=== PATIENT | female | born 1980 | race Caucasian/White ===

== ENCOUNTER 2019-08-22 22:23 | Emergency (ER) | payer OTHER ==
--- NOTE | 2019-08-22 23:41 | ER ---
Nurse's Notes [facility] Name: Ruba Dick Age: 38 yrs Sex: Female : 1980 Arrival Date: 08/22/2019 Time: 22:24 Bed Waiting Private MD: Diagnosis: Presentation: 08/21 22:32 Chief complaint: Patient states: Pelvic pain that started yesterday with worsening pain bb today. No other complaints. Coronavirus screen: Proceed with normal triage. Ebola Screen: Patient negative for fever greater than or equal to 101.5 degrees Fahrenheit, and additional compatible Ebola Virus Disease symptoms Patient denies exposure to infectious person. Patient denies travel to an Ebola-affected area in the 21 days before illness onset. Initial Sepsis Screen: Does the patient meet any 2 criteria? No. Patient's initial sepsis screen is negative. Does the patient have a suspected source of infection? No. Patient's initial sepsis screen is negative. Risk Assessment: Do you want to hurt yourself or someone else? Patient reports no desire to harm self or others. Onset of symptoms was August 21, 2019. 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 - Social history:: Smoking status: Patient denies any tobacco usage or history of. Patient/guardian denies using alcohol, street drugs. Vital Signs: 22:32 BP 136 / 94; Pulse 81; Resp 19; Temp 97.9; Pulse Ox 98% on R/A; Weight 104.33 kg; bb Height 5 ft. 6 in. (167.64 cm); Pain 8/10; 22:32 Body Mass Index 37.12 (104.33 kg, 167.64 cm) bb ED Course: 22:24 Patient arrived in ED. ds1 22:34 Triage completed. bb 22:36 Arm band placed on right wrist. bb 23:33 Jorge Bee PA is PHCP. cp 23:33 Malcolm Dia MD is Attending Physician. cp 23:40 Patient's name was called from ER lobby. No response. Unable to locate patient. Will bb disposition as left without being seen by a provider. Administered Medications: No medications were administered Outcome: 23:41 Patient left the ED. bb Signatures: Jacque Best ds1 Aimee Polk RN RN bb Jorge Bee PA PA cp
[2019-08-22 23:55] VITALS: BP 136/94; TEMP 97.9; O2SAT 98
== END 2019-08-22 23:41 | disposition left against medical advice (07) ==
LOC: ER 22:23
DX: Z53.21 Procedure and treatment not carried out due to patient leaving prior to being seen by health care provider (principal)
CPT/HCPCS: 99281

== ENCOUNTER 2023-10-14 14:50 | Emergency (ER) | payer BC ==
--- OUTSIDE RECORDS SUMMARY | 2023-10-14 14:53 | XMS REPORT | Continuity of Care Document ---
Author Name Unknown Organization [facility] Address [address] [place] [address] Care Team Providers Care Rn Access Name Role Phone Catrina Gentile MD Unavailable Don Mead MD Primary Care Provider [email or web address] Mikal oBsch MD Unavailable [phone] Monster Lee MD Unavailable [phone] Mercedes Marie MD Unavailable [phone] Allergies No known active allergiesafter 10/14/2022 Medications Medication Sig Dispensed Refills Start Date End Date Status acetaminophen (TYLENOL) 500 mg tabletIndications:Mal ignant neoplasm of endocervix Take 2 tablets (1,000 mg) by mouth every 6 (six) hours. For pain. 60 tablet 08/04/2018 Active multivitamin capsule Take 1 capsule by mouth daily. Active cyanocobalamin (VITAMIN B-12) 100 mcg tablet Take by mouth daily. Active calcium carbonate-vitamin D3 (calcium-vitamin D) 500 mg - 200 units (1,250 mg calcium carbonate) tablet Take by mouth 2 (two) times a day with meals. Active after 10/14/2022 Active Problems Problem Noted Date Diagnosed Date Other fatigue 12/01/2018 Exercise counseling 12/01/2018 Malignant neoplasm of endocervix 05/30/2018 Cancer Staging:Clinical stage from 05/24/2017:Stage IA2- Unsigned Pathologic: Unsigned Numbness of hand after 10/14/2022 Family History Medical History Relation Name Comments Alcohol abuse Father Hypertension Father Relation Name Status Comments Brother Alive Father Alive Mother Alive after 10/14/2022 Social History Smoking Status as of 10/14/2023 Tobacco Use Types Packs/Day Years Used Date Smoking Tobacco: Never Assessed Sex and Gender Information Value Date Recorded Sex Assigned at Female 05/29/2019 11:10 AM UNIT MANAGER RN Gender Identity Female 05/29/2019 11:10 AM UNIT MANAGER RN Sexual Orientation Not on file after 10/14/2022 Plan of Treatment Not on file after 10/14/2022 Medical Devices Implanted Type Area Superintendent Communications Device Identifier Shelf Expiration Date Model / Serial / Lot [employer] - [id number] Implanted:Qty : 1 on 08/03/2018 by Don Mead MD at [facility] Skin/[place] N/A: Abdomen [employer] 03/01/2021 [id number] / / [id number] after 10/14/2022 Care Teams Rn Access Relationship Specialty Start Date End Date Catrina Gentile MD [address] [address] PCP - External Follow Up A 05/19/18 Don Mead MD [address] [place] [id number] [email or web address] PCP - General Gynecologic Medical Oncology 06/19/18 Mikal Bosch MD [address] [place] [id number] [email or web address] Consulting Physician Physical Medicine and Rehabilitation 12/01/18 Monster Lee MD [address] [place] [id number] [email or web address] Consulting Physician Integrative Medicine 11/09/19 Mercedes Marie MD [address] [place] [id number] [email or web address] Consulting Physician Cardiology 11/22/19 after 10/14/2022
[2023-10-14] MEDS ORDERED: KETOROLAC 30 MG/ML INJ ONE (14:59)
[2023-10-14 15:23] LABS: Specific Gravity > 1.030 (1.005-1.030)
[2023-10-14 15:28] LABS: Specific Gravity > 1.030 (1.005-1.030); Urine Bacteria 20-50 /HPF (<20); Urine Bilirubin NEGATIVE (Negative); Urine Blood 3+ (Negative); Urine Clarity Extremely Turbid (Clear); Urine Color Yellow (Yellow); Urine Culture Reflex Order NOT NEEDED; Urine Glucose NEGATIVE (Negative); Urine Ketones TRACE (Negative); Urine Microscopic Reflex YN ORDER UMIC; Urine Mucus 2+ /HPF (None Seen); Urine Nitrite 1+ (Negative); Urine Protein 1+ (Negative); Urine Urobilinogen Normal (Normal); Urine WBC <5 /HPF (<5); Urine pH 5.5 (5.0-7.0)
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
--- NOTE | 2023-10-14 15:38 | ER ---
Nurse's Notes [facility] Name: Ruba Dick Age: 43 yrs Sex: Female : 1980 Arrival Date: 10/14/2023 Time: 14:50 Bed 12 Private MD: Diagnosis: Low back pain;UTI/ Urinary tract infection, site not specified Presentation: 10/13 14:54 Chief complaint: Patient states: Back pain for 3 days. No trauma or falls. Coronavirus ll1 screen: Client denies travel out of the [place] in the last 14 days. At this time, the client does not indicate any symptoms associated with coronavirus-19. Ebola Screen: Patient denies travel to an Ebola-affected area in the 21 days before illness onset. Initial Sepsis Screen: Does the patient meet any 2 criteria? No. Patient's initial sepsis screen is negative. Does the patient have a suspected source of infection? No. Patient's initial sepsis screen is negative. Risk Assessment: Do you want to hurt yourself or someone else? Patient reports no desire to harm self or others. Onset of symptoms was October 12, 2023. 14:54 Method Of Arrival: Ambulatory ll1 14:54 Acuity: GONSALO 3 ll1 Triage Assessment: 14:55 General: Appears uncomfortable, Behavior is calm, cooperative, appropriate for age. ll1 Pain: Complains of pain in low back Pain radiates to mid back Pain currently is 8 out of 10 on a pain scale. Musculoskeletal: Reports pain in low back. Historical: - PMHx: 14:55 cervical cancer; ll1 - Immunization history:: Adult Immunizations up to date. - Infectious Disease History:: Denies. - Social history:: Smoking status: Patient denies any tobacco usage or history of. Screenin:27 [facility] ED Fall Risk Assessment (Adult) History of falling in the last 3 months, as6 including since admission No falls in past 3 months (0 pts) Confusion or Disorientation No (0 pts) Intoxicated or Sedated No (0 pts) Impaired Gait No (0 pts) Mobility Assist Device Used No (0 pt) Altered Elimination No (0 pt) Score/Fall Risk Level 0 - 2 = Low Risk Oriented to surroundings, Maintained a safe environment, Educated pt \T\ family on fall prevention, incl call for assistance when getting out of bed, Assessed \T\ reinforced patient's understanding of fall precautions. Abuse screen: Denies threats or abuse. Denies injuries from another. Nutritional screening: No deficits noted. Tuberculosis screening: No symptoms or risk factors identified. Vital Signs: 14:54 BP 123 / 83; Pulse 87; Resp 17; Temp 97.9; Pulse Ox 96% ; Pain 8/10; ll1 14:54 Pain Scale: Adult ll1 ED Course: 14:52 Patient arrived in ED. rg4 14:54 Bharti Mcintosh [facility]C [facility] kb 14:54 Christian Shahid MD is Attending Physician. kb 14:55 Triage completed. ll1 14:55 Arm band placed on. ll1 14:58 Jamal Gilbert, RN is Primary Nurse. as6 15:12 Test, Urine Sent. as6 15:12 Urinalysis w/ reflexes Sent. as6 15:28 Bed in low position. Call light in reach. Side rails up X 1. as6 15:45 Provided Education on: rx teaching . as6 15:45 No provider procedures requiring assistance completed. Patient did not have IV access as6 during this emergency room visit. Administered Medications: 15:12 Drug: Ketorolac IM 30 mg IM once Route: IM; Site: right deltoid; as6 15:45 Follow up: Response: No adverse reaction as6 Medication: 15:28 VIS not applicable for this client. as6 Outcome: 15:37 Discharge ordered by . kb 15:45 Discharged to home ambulatory, as6 15:45 Condition: stable 15:45 Discharge instructions given to patient, Instructed on discharge instructions, follow up and referral plans. medication usage, Demonstrated understanding of instructions, follow-up care, medications, Prescriptions given X 3, 15:46 Patient left the ED. as6 Signatures: Bharti Mcintosh FNP-C FNP-Ckb Garcia, Rubi rg4 Rebecca Langford RN RN ll1 Jamal Gilbert, TIFFANIE RN as6
[2023-10-14 16:04] VITALS: BP 123/83; TEMP 97.9; O2SAT 96
== END 2023-10-14 15:46 | disposition home or self-care (01) ==
LOC: ER 14:50
DX: N39.0 Urinary tract infection, site not specified (principal)
CPT/HCPCS: 81001; 81025; 96372; 99284